=== PATIENT | male | born 1940 | race Caucasian/White ===

== ENCOUNTER 2016-12-12 09:56 | Emergency (ER) | payer MEDICAID, MEDICARE, OTHER ==
[~2016-12-12] VITALS: Ht 165.1 cm; Wt 72.6 kg
[~2016-12-12 09:56] MED LIST: BISA10SU61 RC; DOCU-25 PO; GABA-534 PO; NA P133E RC
[2016-12-12] MEDS ORDERED: TEMA15CA PO (10:12)
[2016-12-12] MEDS ORDERED: DIVA500T7 PO ×2 (10:12)
[2016-12-12] MEDS ORDERED: DIVA250T6 PO (10:12)
[2016-12-12 10:36] LABS: BASOPHILS # (AUTO) 0.1 K/uL (0.0-8.0); BASOPHILS % (AUTO) 1.2 % (0.0-2.0); EOSINOPHILS # (AUTO) 0.5 K/uL (0.0-0.7); EOSINOPHILS % (AUTO) 5.6 % (0.0-7.0); HEMATOCRIT 41.4 % (40-50); HEMOGLOBIN 14.1 G/DL (14.0-18.0); LYMPHOCYTES # (AUTO) 1.6 K/UL (0.8-4.8); LYMPHOCYTES % (AUTO) 19.3 % (20.5-51.5); MEAN CORPUSCULAR HEMOGLOBIN 28.9 UUG (27.0-31.0); MEAN CORPUSCULAR HGB CONC 34 g/dL (32.0-37.0); MEAN CORPUSCULAR VOLUME 84.6 FL (82.0-92.0); MONOCYTES # (AUTO) 0.6 K/UL (0.1-1.30); MONOCYTES % (AUTO) 7.6 % (0.0-11.0); NEUTROPHILS # (AUTO) 5.5 K/UL (1.8-8.9); NEUTROPHILS % (AUTO) 66.3 % (38.5-71.5); PLATELET COUNT (AUTO) 248 K/UL (150-450); RED BLOOD CELL COUNT(AUTO) 4.89 MIL/UL (4.7-6.1); WHITE BLOOD COUNT (AUTO) 8.3 K/UL (4.0-11.2)
--- NOTE | 2016-12-12 10:37 | NUR ---
Pt is resting in gurney and watching tv and remains calm and cooperative, son at bedside.
[2016-12-12 10:42] LABS: *BILIRUBIN,URIN NEGATIVE (NEGATIVE); *BLOOD, URINE NEGATIVE (NEGATIVE); *CLARITY,URINE CLEAR (CLEAR); *COLOR,URINE YELLOW (YELLOW); *KETONES,URINE NEGATIVE (NEGATIVE); *PROTEIN,URINE 2+ (NEGATIVE); *UROBILINOGEN,URINE 0.2 E.U./dl (NORMAL); LEUKOCYTE ESTERASE ,URINE NEGATIVE (NEGATIVE); NITRITE, URINE NEGATIVE (NEGATIVE); PH,URINE 7.5 (5.0-8.0); UGLUCOSE NEGATIVE (NEGATIVE)
[2016-12-12 10:44] LABS: CALCIUM 8.8 mg/dL (8.5-10.1); CARBON DIOXIDE 30 mmol/L (21-32); CHLORIDE 103 mmol/L (98-107); GLUCOSE 109 mg/dL (74-106); POTASSIUM 4.4 mmol/L (3.5-5.1); SODIUM SERUM 139 mmol/L (136-145); UREA NITROGEN, BLOOD 10 mg/dL (7-18)
[2016-12-12 10:45] LABS: ETHANOL < 3 MG/DL (0-0)
[2016-12-12 10:50] LABS: BACTERIA,URINE FEW /HPF (NONE SEEN); RBC,URINE NONE SEEN /HPF (0-3); SQUAMOUS EPITHELIAL CELL,UR FEW /HPF (NONE SEEN); WBC,URINE 0-3 /HPF (0-3)
[2016-12-12 10:57] LABS: *AMPHETAMINE, URINE NEGATIVE (NEGATIVE); *BARBITURATE, URINE NEGATIVE (NEGATIVE); *CANNABINOID, URINE NEGATIVE (NEGATIVE); *COCCAINE, URINE NEGATIVE (NEGATIVE); *OPIATE, URINE NEGATIVE (NEGATIVE); *PHENCYCLIDINE SCREEN,URINE NEGATIVE (NEGATIVE)
[2016-12-12 11:04] LABS: ALANINE AMINOTRANSFERASE 22 U/L (16-63); ALBUMIN 3.8 g/dL (3.4-5.0); ALKALINE PHOSPHATASE 88 U/L (50-136); ASPARTATE AMINOTRANSFERASE 25 U/L (15-37); BILIRUBIN,DIRECT 0.1 mg/dL (0.0-0.2); BILIRUBIN,TOTAL 0.4 mg/dL (0.2-1.0); TOTAL PROTEIN, SERUM 7.6 g/dL (6.4-8.2)
[2016-12-12 11:07] LABS: ACETAMINOPHEN < 2.0 ug/mL (10-30)
--- NOTE | 2016-12-12 11:10 | NUR ---
Pt attempting to elope, security called for 1:[address] Mathur order.
[2016-12-12] MEDS: LORAZEPAM 0.5 MG TABLET PO ONE (11:13)
[2016-12-12] MEDS ORDERED: LORAZEPAM 1 MG TABLET ONE ×2 (11:21→11:23)
--- NOTE | 2016-12-12 11:30 | NUR ---
Spoke with Ed Bowser via telephone, eta 2 hrs.
--- NOTE | 2016-12-12 12:46 | NUR ---
Ed Bowser here for psych eval.
--- NOTE | 2016-12-12 13:23 | NUR ---
Patient discharged to home in stable conditon. Written and verbal after care instructions given. Patient son verbalizes understanding of instructions.pt walks in steady gait, accompanied by son, no sign of distress at this point.
[2016-12-12 13:24] VITALS: BP 109/59
== END 2016-12-12 13:25 | disposition home or self-care (01) ==
LOC: ER 09:56
DX: F20.9 Schizophrenia, unspecified (principal); F03.90 Unspecified dementia, unspecified severity, without behavioral disturbance, psychotic disturbance, mood disturbance, and anxiety; F10.20 Alcohol dependence, uncomplicated
CPT/HCPCS: 36415; 71010; 80307; 85025; 93005; A4663; G0480-TC; G6040-TC